=== PATIENT | female | born 1985 | race Native Hawaiian/Other Pacific Islander ===

== ENCOUNTER 2017-04-21 09:18 | Outpatient (CLI) | payer BC, OTHER ==
[~2017-04-21 09:18] MED LIST: SYNTHROID137 MCG PO
== END 2017-04-21 10:20 | disposition home or self-care (01) ==
LOC: LABW 09:18
DX: H47.011 Ischemic optic neuropathy, right eye (principal)
CPT/HCPCS: 36415; 82565; 84520

== ENCOUNTER 2019-08-13 07:55 | Outpatient (CLI) | payer OTHER | END 2019-08-13 20:33 | disposition home or self-care (01) | LOC: LABW 07:55 | DX: E89.0 Postprocedural hypothyroidism (principal) | CPT/HCPCS: 36415; 84439; 84443 ==

== ENCOUNTER 2020-03-11 14:42 | Outpatient (CLI) | payer OTHER ==
[2020-03-11 16:18] LABS: PLATELET COUNT 275 K/uL (152-353)
[2020-03-11 16:38] LABS: POTASSIUM 3.8 mmol/L (3.6-5.2)
== END 2020-03-11 19:26 | disposition home or self-care (01) ==
LOC: LABW 14:42
PROVIDERS: Internal Medicine
DX: J40 Bronchitis, not specified as acute or chronic (principal); R53.83 Other fatigue; E03.9 Hypothyroidism, unspecified
CPT/HCPCS: 36415; 80053; 81000; 84439; 84443; 85027; 86308; 87502

== ENCOUNTER 2020-03-13 15:52 | Outpatient (CLI) | payer OTHER | END 2020-03-13 20:44 | disposition home or self-care (01) | LOC: LAB 15:52 | DX: Z20.828 Contact with and (suspected) exposure to other viral communicable diseases (principal) | CPT/HCPCS: 87635; U0002 ==

== ENCOUNTER 2023-09-01 13:36 | Outpatient (CLI) | payer OTHER | END 2023-09-01 19:05 | disposition home or self-care (01) | LOC: MRI 13:36 | PROVIDERS: ATTEND Nurse Practitioner Family | DX: H91.92 Unspecified hearing loss, left ear (principal) | CPT/HCPCS: 36415; 82565; 84520; A9576 ==